=== PATIENT | male | born 1945 | race Caucasian/White ===

== ENCOUNTER 2022-10-24 13:29 | Outpatient (REF) | payer BC, SELFPAY ==
--- NOTE | ~2022-10-24 | CT_ITS ---
EXAMINATION: CT MAXILLOFACIAL WITHOUT CONTRAST CLINICAL INFORMATION: Sinusitis. COMPARISON: None. TECHNIQUE: Multidetector helical imaging was performed in the axial plane with generation of coronal and sagittal reformatted images. This CT examination was performed using dose optimization techniques as appropriate, variously including the following: *Automated exposure control *Adjustment of mA and/or kV according to patient size (this includes techniques or standardized protocols for targeted exams where dose is matched to indication/reason for exam; i.e. extremities or head) *Use of iterative reconstruction technique DLP: 111 mGy-cm. FINDINGS: The frontal sinuses are hyperpneumatized and clear superiorly. There is mucosal thickening opacifying the left frontoethmoidal recess and narrowing the right frontoethmoidal recess. There is mild bilateral polypoid ethmoid mucosal thickening. There is mild mucosal thickening in the right sphenoid sinus. The right sphenoethmoidal recess is opacified while the left side is clear. There is trace mucosal thickening in the maxillary sinuses. Both ethmoidal infundibula are opacified with polypoid thickening. No fluid levels are seen. There is rightward deviation of the nasal septum. There is a small polyp in the left nasal cavity abutting the middle turbinate. The ethmoid roofs are symmetric. The lamina papyracea are intact. The carotid impression is dehiscent on the left. No maxillary periapical disease is seen. The mastoid air cells and visualized middle ear cavities are well aerated. The orbits are normal. The TMJs are unremarkable. The imaged portions of the brain demonstrate no acute abnormality. CT/CT sinus wo IV con IMPRESSION: Mucosal thickening opacifying the left frontoethmoidal recess and narrowing the right frontoethmoidal recess. Mild bilateral polypoid ethmoid mucosal thickening. Mild mucosal thickening in the right sphenoid sinus with opacification of the right sphenoethmoidal recess. Trace mucosal thickening in the maxillary sinuses. Both ethmoidal infundibula are opacified with polypoid thickening. No fluid levels. Rightward deviation of the nasal septum. Small polyp in the left nasal cavity abutting the middle turbinate.
== END 2022-10-24 13:30 | disposition home or self-care (01) ==
LOC: HO.CT 13:29
PROVIDERS: PCP Internal Medicine; Visit Provider Psychiatry & Neurology Neurology
DX: J32.9 Chronic sinusitis, unspecified (principal)
CPT/HCPCS: 70486